=== PATIENT | female | born 1995 | race American Indian/Alaskan Native ===

== ENCOUNTER 2020-08-14 23:26 | Emergency (ER) | payer MEDICAID ==
[2020-08-14 23:48] VITALS: BP 112/79
[2020-08-15 00:25] LABS: Basophils % (Auto) 0.3 % (0.0-1.8); Eosinophils # (Auto) 0.2 K/mm3 (0.0-0.4); Eosinophils % (Auto) 2.1 % (0.0-4.3); Hematocrit 39.6 % (30.3-42.9); Hemoglobin 13.6 gm/dl (10.1-14.3); Lymphocytes # (Auto) 3.1 K/mm3 (1.2-5.4); Lymphocytes % (Auto) 37.5 % (13.4-35.0); Mean Corpuscular HGB Conc 35 % (30-34); Mean Corpuscular Volume 85 fl (79-97); Monocytes # (Auto) 0.7 K/mm3 (0.0-0.8); Monocytes % (Auto) 8.2 % (0.0-7.3); Platelet Count 237 K/mm3 (140-440); Red Blood Count 4.66 M/mm3 (3.65-5.03); Red Cell Distribution Width 13.4 % (13.2-15.2)
[2020-08-15 00:43] LABS: Blood Urea Nitrogen 6 mg/dL (7-17); Calcium 8.5 mg/dL (8.4-10.2); Hemolysis Index 15
[2020-08-15 00:45] LABS: BUN/Creatinine Ratio 10
--- NOTE | 2020-08-15 02:45 | Emergency Department Report ---
<LACEY BAE - Last Filed: 08/15/20 02:40> ED Headache HPI - General Chief Complaint: Headache Stated Complaint: BAD HEADACHE/VOMITING/WEAKNESS Time Seen by Provider: 08/15/20 01:01 - History of Present Illness Initial Comments: 24-year-old female with past medical history of untreated thyroid disorder bronchitis presents emerged department complaining of dull throbbing headache located to the frontal region associated with nausea and a couple episodes of vomiting and occasional presyncope since about 4 PM on 08/14/2020. Reports no chest pain or palpitation, scotomas Quality: mild, moderate Head Injury Location: frontal Recent Head Trauma: frequent headaches Associated Symptoms: nausea/vomiting. denies: fatigue, facial pain, fever/chills, nasal congestion, nasal drainage, sinus infection, stiff neck, vision changes Allergies/Adverse Reactions: Allergies No Known Allergies Allergy (Unverified 08/14/20 23:48) Home Medications: Ambulatory Orders Butalb/Acetamin/Caff 50-325-40 [Fioricet 50-325-40] 1 tab PO Q6HR PRN #15 tab 08/15/20 ED Review of Systems Comment: All other systems reviewed and negative ED Past Medical Hx - Past Medical History Previous Medical History?: Yes Additional medical history: Thyroud, Bronchitis - Surgical History Past Surgical History?: No - Social History Smoking Status: Former Smoker Substance Use Type: None - Medications Home Medications: Home Medications Medication Instructions Recorded Confirmed Last Taken Type Butalb/Acetamin/Caff 50-325-40 1 tab PO Q6HR PRN #15 tab 08/15/20 Unknown Rx [Fioricet 50-325-40] ED Physical Exam - General Limitations: No Limitations General appearance: alert, in no apparent distress - Head Head exam: Present: atraumatic, normocephalic - Eye Eye exam: Present: normal appearance, PERRL, EOMI Pupils: Present: normal accommodation - ENT ENT exam: Present: mucous membranes moist - Neck Neck exam: Present: normal inspection - Respiratory Respiratory exam: Present: normal lung sounds bilaterally. Absent: respiratory distress - Cardiovascular Cardiovascular Exam: Present: regular rate, normal rhythm. Absent: systolic murmur, diastolic murmur, rubs, gallop - GI/Abdominal GI/Abdominal exam: Present: soft, normal bowel sounds - Extremities Exam Extremities exam: Present: normal inspection - Back Exam Back exam: Present: normal inspection - Neurological Exam Neurological exam: Present: alert, oriented X3 - Psychiatric Psychiatric exam: Present: normal affect, normal mood - Skin Skin exam: Present: warm, dry, intact, normal color. Absent: rash ED Medical Decision Making - Lab Data Result diagrams: 08/14/20 23:50 08/14/20 23:50 ED Disposition Clinical Impression: Head ache Qualifiers: Headache type: unspecified Headache chronicity pattern: acute headache Intractability: not intractable Qualified Code(s): R51.9 - Headache, unspecified Disposition: DC- TO HOME OR SELFCARE Condition: Stable Instructions: Hyperthyroidism, Migraine Headache, [id number], General Headache Without Cause, Tension Headache, Adult, [id number] Additional Instructions: Take medications as prescribed, follow up with your doctor in 2-3 days., return to emergency if symptoms worsen. Prescriptions: Butalb/Acetamin/Caff 50-325-40 [Fioricet 50-325-40] 1 tab PO Q6HR PRN #15 tab PRN Reason: Headache Referrals: KRYSTINA EATON MD [Staff Physician] - 3-5 Days [facility] MEL[facility] [Primary Care Provider] - 3-5 Days Forms: Work/School Release Form(ED) <MICAH TRISTAN - Last Filed: 08/15/20 03:51> ED Review of Systems ROS: Stated complaint: BAD HEADACHE/VOMITING/WEAKNESS Other details as noted in HPI ED Course Vital Signs 08/14/20 23:44 Temperature 98.0 F Pulse Rate 70 Respiratory 18 Rate Blood Pressure 112/79 O2 Sat by Pulse 96 Oximetry ED Medical Decision Making - Lab Data Result diagrams: 08/14/20 23:50 08/14/20 23:50 Critical care attestation.: If time is entered above; I have spent that time in minutes in the direct care of this critically ill patient, excluding procedure time. ED Disposition Is pt being admited?: No Does the pt Need Aspirin: No Time of Disposition: 03:51
[2020-08-15] MEDS ORDERED: HYDROcodone/ACETAMINOPHEN 5-325 MG TAB PO ONE (03:49)
== END 2020-08-15 04:00 | disposition home or self-care (01) ==
LOC: ED 23:26
DX: R51.9 Headache, unspecified (principal); R11.2 Nausea with vomiting, unspecified; Z87.891 Personal history of nicotine dependence; Z79.899 Other long term (current) drug therapy
CPT/HCPCS: 36415; 80048; 84443; 84703; 85025